=== PATIENT | male | born 1985 | race Caucasian/White ===

== ENCOUNTER 2018-12-11 01:20 | Emergency (ER) | payer OTHER ==
[~2018-12-11] VITALS: Ht 170.2 cm; Wt 72.6 kg
[2018-12-11] MEDS ORDERED: PROTONIX40 MG PO (04:31)
[2018-12-11] MEDS ORDERED: PEPCID40 MG PO (04:31)
== END 2018-12-11 04:37 | disposition home or self-care (01) ==
LOC: ER 01:20
DX: K21.9 Gastro-esophageal reflux disease without esophagitis (principal)